=== PATIENT | female | born 1965 | race Caucasian/White ===

== ENCOUNTER 2017-08-09 22:10 | Emergency (ER) | payer BC ==
[~2017-08-09] VITALS: Ht 177.8 cm; Wt 67.8 kg
[2017-08-09 22:42] LABS: HEMATOCRIT 37.6 % (36.0-46.0); MCH 29.4 PG (29.0-34.0); MCHC 34.8 G/DL (30.0-36.0); MCV 84.5 FL (83-99); MEAN PLAT.VOLUME 11.6 uM^3 (9.5-12.4); PLATELET COUNT 206 K/uL (156-360); RBC DIS.WIDTH-CV 12.4 % (11.8-14.6); RBC DIS.WIDTH-SD 38.1 % (39-53); RED BLOOD COUNT 4.45 M/uL (3.80-5.20); WHITE BLOOD COUNT 7.6 K/uL (4.1-10.2)
[2017-08-09 22:52] LABS: CHLORIDE 107 mEq/L (99-109); POTASSIUM 3.7 mEq/L (3.7-5.4); SODIUM 142 mEq/L (136-147)
[2017-08-09 22:53] LABS: GLUCOSE 130 mg/dL (70-99)
[2017-08-09 22:55] LABS: ANION GAP 9 MEQ/L (2-14)
[2017-08-09 22:57] LABS: GFR ESTIMATE (CALCULATED) 50 mL/min/
[2017-08-09 22:58] LABS: ADD MIUA? YES; BILIRUBIN NEGATIVE; BLOOD SMALL; COLOR YELLOW ((YELLOW)); GLUCOSE (STRIP) NEGATIVE; KETONES 5; LEUKOCYTES NEGATIVE; NITRITE NEGATIVE; PROTEIN (STRIP) 30; SPECIFIC GRAVITY 1.019 (1.000-1.030); UROBILINOGEN 0.2 MG/DL (0.2-1.0)
[2017-08-09 22:58] LABS: UREA NITROGEN (BUN) 17 mg/dL (9-23)
[2017-08-09 23:14] LABS: BACTERIA RARE /HPF; EPITHELIAL CELLS RARE /HPF; MUCUS 2+ /LPF; UCUL ADDED? NO; WHITE BLOOD CELLS 0-5 /HPF (0-5)
[2017-08-10] MEDS ORDERED: ZOFRAN ODT4 MG PO (03:15)
[2017-08-10] MEDS ORDERED: NORCO 5/3251 TABLET PO (03:15)
[2017-08-10] MEDS ORDERED: FLOMAX0.4 MG PO (03:15)
[2017-08-10 04:22] VITALS: BP 106/88
== END 2017-08-10 04:24 | disposition home or self-care (01) ==
LOC: EME 22:10
DX: N13.2 Hydronephrosis with renal and ureteral calculous obstruction (principal); Z87.442 Personal history of urinary calculi
CPT/HCPCS: 74176; 80048; 81003; 85027; 99281; 99284; J1885